=== PATIENT | male | born 1945 | race Asian ===

== ENCOUNTER 2019-09-28 23:50 | Emergency (ER) | payer BC ==
[~2019-09-28] VITALS: Ht 162.6 cm; Wt 60.3 kg
[2019-09-29 00:05] VITALS: BP 151/85
--- NOTE | 2019-09-29 00:12 | NUR ---
RETURNS TO LOBBY WITH STEADY GAIT IN UPRIGHT POSITION. SON AND GRANDDAUGHTER PRESENT.
--- NOTE | 2019-09-29 01:08 | NUR ---
PT AMBULATED TO BED 09 WITH STEADY GAIT IN UPRIGHT POSITION. GRANDDAUGHTER PRESENT. Addendum: 09/29/19 at 0110 by [facility] ENDORSED TO [facility].
--- NOTE | 2019-09-29 01:10 | NUR ---
74/M PRESENTED TO ED WITH C/O RIGHT UPPER MOLAR PAIN X 1 WEEK WITH RIGHT SIDE FACIAL SWELLING STARTING YESTERDAY. REDNESS AND SWELLING NOTED TO RIGHT SIDE OF FACE. PAIN 7/10 ACHE. EVEN UNLABORED BREATHING. CLEAR BILAT LUNG SOUNDS. NO SIGNS OF DISTRESS. WILL CONTINUE TO MONITOR. FAMILY AT BEDSIDE. PMH-- DENIES RX-- IBUPROFEN 300 MG X 3 TODAY
[2019-09-29 02:12] VITALS: BP 139/82
--- NOTE | 2019-09-29 02:12 | NUR ---
Patient discharged with v/s stable. Written and verbal after care instructions given and explained. Patient alert, oriented and verbalized understanding of instructions. Ambulatory with steady gait. All questions addressed prior to discharge. ID band removed. Patient advised to follow up with PMD. Rx of Ibuprofen and Augmentin given. Patient educated on indication of medication including possible reaction and side effects. Opportunity to ask questions provided and answered.
== END 2019-09-29 02:12 | disposition home or self-care (01) ==
LOC: MED 23:50
DX: K04.7 Periapical abscess without sinus (principal)
CPT/HCPCS: 99283